=== PATIENT | male | born 1955 | race Caucasian/White ===

== ENCOUNTER → 2018-03-02 | Outpatient (REF) | payer BC ==
[2018-03-02 13:52] LABS: URIC ACID 5.8 MG/DL (3.5-7.2)
== END ==
LOC: M LAB REF 13:04
DX: M79.671 Pain in right foot (principal)
CPT/HCPCS: 84550

== ENCOUNTER → 2020-05-01 | Outpatient (CLI) | payer BC ==
[~2020-05-01] MED LIST: RHOP0.02 OS; SIMB1SUS OS; TIMO0.5S39 OS; XALA0.007 OS
== END ==
LOC: M LABSMTC 09:33
PROVIDERS: ATTEND Anesthesiology
DX: Z01.812 Encounter for preprocedural laboratory examination (principal); Z20.828 Contact with and (suspected) exposure to other viral communicable diseases
CPT/HCPCS: C9803; U0003

== ENCOUNTER → 2020-05-01 | Outpatient (CLI) | payer BC ==
--- NOTE | 2020-05-02 21:17 | ECGEPIP ---
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
== END ==
LOC: M LAB 10:04 → M EKG 10:04
PROVIDERS: ATTEND Surgery
DX: Z01.818 Encounter for other preprocedural examination (principal)

== ENCOUNTER 2020-05-06 06:12 | Day surgery (SDC) | payer BC ==
[~2020-05-06] VITALS: Ht 182.9 cm; Wt 91.6 kg
[2020-05-06] MEDS ORDERED: ceFAZolin SOD 2 GM in IV 1 EA IV ONE (07:00)
[2020-05-06] MEDS ORDERED: LR 1,000 ML IV ONE (07:00)
[2020-05-06] MEDS ORDERED: propofoL 200 MG/20 ML VIAL As Ordered ONE (07:14)
[2020-05-06] MEDS ORDERED: ROCURONIUM BROMIDE 50 MG/5 ML VIAL As Ordered ONE (07:14)
[2020-05-06] MEDS ORDERED: LIDOCAINE 2% 100MG/5ML SDV (FOR ANES.) As Ordered ONE (07:14)
[2020-05-06] MEDS ORDERED: SUGAMMADEX SODIUM 500 MG/5 ML VIAL (BRIDION) As Ordered ONE (07:14)
[2020-05-06] MEDS ORDERED: ONDANSETRON 4MG/2ML VIAL As Ordered ONE (07:15)
[2020-05-06] MEDS ORDERED: dexameTHASONE 4 MG/ML 1ML VIAL (J1100 PER 1MG) As Ordered ONE (07:15)
[2020-05-06] MEDS ORDERED: MIDAZOLAM INJ 2MG/2ML VIAL (J2250 PER 1MG) As Ordered ONE (07:15)
[2020-05-06] MEDS ORDERED: fentaNYL 100 MCG/2 ML INJECTION (J3010) As Ordered ONE (07:15)
[2020-05-06] MEDS ORDERED: KETOROLAC 60MG 2ML VIAL As Ordered ONE (07:15)
[2020-05-06] MEDS ORDERED: ACETAMINOPHEN 1000MG 100ML IV BTL (OFIRMEV) (J0131 PER 10MG) As Ordered ONE (07:15)
[2020-05-06] MEDS ORDERED: BUPIVACAINE HCL 0.25% 10ML VIAL As Ordered ONE (07:17)
[2020-05-06] MEDS ORDERED: BUPIVACAINE HCL 0.25% 30ML VIAL As Ordered ONE (07:18)
[2020-05-06] MEDS ORDERED: LIDOCAINE 1% SDV 30ML VIAL As Ordered ONE (07:18)
[2020-05-06] MEDS ORDERED: BUPIVACAINE LIPOSOME/PF 1.3% 20ML VIAL (13.3MG/ML)(EXPAREL)(C9290 PER1MG) As Ordered ONE (07:18)
[2020-05-06] MEDS ORDERED: oxyCODONE 5MG TAB PO PRN (10:45)
[2020-05-06] MEDS ORDERED: fentaNYL 100 MCG/2 ML INJECTION (J3010) IV PRN (10:45)
[2020-05-06] MEDS ORDERED: METOCLOPRAMIDE INJ 10MG/2ML VIAL (J2765 PER 1) IV PRN (10:45)
[2020-05-06] MEDS ORDERED: MEPERIDINE INJ 25 MG/ML VIAL (J2175) IV PRN (10:45)
[2020-05-06] MEDS ORDERED: LR 1,000 ML IV SCH (10:45)
[2020-05-06] MEDS ORDERED: ONDANSETRON 4MG/2ML VIAL IV PRN (10:45)
[2020-05-06] MEDS ORDERED: KETOROLAC 30 MG/ML 1ML VIAL IV PRN (11:00)
[2020-05-06] MEDS ORDERED: PERCOCET 5MG/325MG TAB PO PRN (11:00)
--- NOTE | 2020-05-06 11:00 | ROOPDOC ---
[facility] Report Of Operation Report of Operation DATE OF PROCEDURE: 05/06/20 PREPROCEDURE DIAGNOSES: right inguinal hernia, umbilical hernia. POSTPROCEDURE DIAGNOSES: right indirect inguinal hernia, umbilical hernia. PROCEDURE: Robotic Assisted Laparoscopic Right inguinal hernia repair (MATTHEW, 16x12 progrip mesh), open umbilical hernia repair (6.4 cm round ventral patch mesh) SURGEON: Jc Garcia MD RUBBER AND POUNDER: HORACIO Ward Ms assisted with placement of ports, management of the instruments and the robotic tower on the field while I was at the surgeon's console, placement of mes and closure of the incisions. She also assisted me with retraction during the open umbilical hernia repair portion. ANESTHESIA: General anesthesia ESTIMATED BLOOD LOSS: Approximately 10 mL. COMPLICATIONS: none REMARKS: right indirect inguinal hernia repair with redundant sac, moderate sized opening of the internal ring. 2 x 1.5 cm umbilical hernia defect. PROCEDURE NOTE: . DESCRIPTION OF PROCEDURE: . Patient received 2 g of Ancef IV preoperatively for wound prophylaxis. Patient was brought to the operating room, placed supine on the operating table. Compression boots placed in both lower extremities for DVT prophylaxis. General anesthesia started. His abdomen and groin/pelvic area then prepped and draped in the usual sterile fashion. After a surgical timeout we began our surgery. Patient has a small roughly about 2 cm umbilical fascial defect pushing the superior portion of the umbilical skin outward. After a field block using a mixture of 1% lidocaine and 1/4% Marcaine around the umbilicus, I created a curvilinear incision at the margin of the umbilical cleft and the umbilical skin was dissected off the hernia. A Veress needle was inserted through the hernia and intra-abdominal insufflation started. Using the umbilical hernia and 8mm port was inserted into the abdomen under direct vision of the laparoscope. The insertion site was inspected for injury and none was found. He was placed in a mild Trendelenburg position at 8 degrees. Along the same transverse line, slightly more superior the left and right 8mm ports were placed under direct vision of laparoscope. A transversus abdominis plane block was then performed under laparoscopic guidance with a 20-gauge 2 inch spinal needle bilaterally. The [employer] robot tower was then positioned in place and the trochars docked onto the robot. The robotic instruments were placed and positioned. I then unscrubbed and took control of the camera and the laparoscopic instruments at the surgeon's console. I used a 0 degree 8 mm robotic laparoscope, A forced bipolar forceps with bipolar cautery on left arm and A laparoscopic scissor with unipolar cautery in arm 1 was used, later on exhanged for a eleazar suture cut needle horse and wagon driver. Operative Findings: On the patient's right side where clinically he was noted to have a hernia a moderate sized opening of the internal ring is appreciated with no intra-abdominal organs protruding through the defect. He also has a fairly fatty umbilical ligament on that side. I did not see any defect at the indirect opening on the left side. The peritoneum was opened up about 7 cms above the superior edge of the indirect fascial defect of the inguinal hernia starting at the medial umbilical ligament going i laterally towards the level of the anterior superior iliac spine. I maintained a preperitoneal dissection, keeping the parietal covering of the inferior epigastric vessels intact. The peritoneal envelope was then developed approaching the space of Retzius bringing the urinary bladder down. The pubic tubercle was exposed past the symphysis pubis and 2 cms inferior to the lower edge fo the pubic tubercle with visualization of the obturator opening, femoral opening, direct hernia space. The lateral space of [place] was similarly opened up keeping the parietal envelope to the psoas muscle to prevent injury to the nerves traversing the muscle. . On approaching the inguinal hernia defect the hernia sac was pulled back into the preperitoneal space and carefully dissected off the testicular vessels and vas deferens, keeping this structures in place. I did have to dissect the vas deference from the hernia sac and parietalize this further to create space and prevent tenting of the peritoneal flap. He has a large redundant inguinal hernia sac which was fully reduced back into the abdomen and released from its fibrotic attachments to the cord structures The perioneum was dissected further inferior to create adequate space for the mesh. The vas deferens was parietalized to free up the petioneum inferiorly and medially.Two large sized, bulky cord lipoma was found and reduced back into the preperitoneal space . After fully dissecting the preperitoneal space, I checked for adequate hemostasis, as well as for presence of femoral hernia( none found), direct hernia and adequacy of the space created. I chose a 16 x 12 cm Parietex Pro Center Mgr self fixating mesh. This was folded with the center of the mesh marked for positioning. This was then delivered intra- abdominally through one of the trochars. In a controlled fashion this was positioned into the preperitoneal space with the medial side past the symphysis pubis, inferiorly below the pubic tubercle and center of the mesh abutting the inferior epigastric vessels,laterally at the Space of [place]. This was carefully pressed onto the abdominal wall and made sure that it was flattened up. After careful placement of the mesh, the peritoneal opening was then closed with a running suture of 2-0V LOC suture. As the hernia sac was long and redundant I incorporated the hernia sac into the closure of the peritoneum. There was hole in the medial aspect of the flap which I closed with a 3-0 vicryl as a pursestring incorporating the redundant sac with it. I then surveyed the abdomen and pelvis for any signs of injury. The instruments were removed. The abdomen was deflated. All ports were removed. I scrubbed back in and proceeded with the umbilical hernia repair. The preperitoneal adipose tissue was dissected free from the hernia defect and likewise I dissected the peritoneum and posterior sheath of the anterior fascial defect create space. Once an adequate space was created the peritoneal sac opening was closed. I chose a 6.4 cm round ventral patch mesh and this was placed into the preperitoneal pocket that I created making sure that this is laying flat. This was closed in 4 corners with 0 Vicryl to the anterior fascia incorporating the strap at the fascial level and then dividing this. The opening was then closed with 0 Ethibond in a mattress fashion. The umbilical cleft was re-created by tacking the bottom of the skin cleft to the fascia and the umbilical incision was then closed with 3-0 Vicryl at the subcutaneous space and [address] interrupt[address] to close the skin. The other 2 port site incisions were closed with 4-0 Monocryl in subcuticular fashion. Dermabond was placed on the lateral sites and Steri-Strips and gauze dressing and Tegaderm placed on top of the umbilical incision. Patient was promptly awakened, extubated and brought to the recovery room stable Count of sponges and instruments were verified correct. JC GARCIA MD May 06, 2020 11:00
[2020-05-06 12:25] VITALS: BP 132/67
== END 2020-05-06 12:35 | disposition home or self-care (01) ==
LOC: M SDC 06:12
PROVIDERS: ATTEND Surgery
DX: K40.90 Unilateral inguinal hernia, without obstruction or gangrene, not specified as recurrent (principal); K42.9 Umbilical hernia without obstruction or gangrene
CPT/HCPCS: 49585; 49650; C1781; C9290; J0131; J0690; J1100; J1885; J2250; J2405; J3010; S2900

== ENCOUNTER → 2021-01-27 | Outpatient (CLI) | payer BC ==
--- NOTE | 2021-01-27 12:09 | REP ---
INDICATION: SWELLING,REDNESS,TENDER COMPARISON: None. TECHNIQUE: Lewis scale and color Doppler evaluation using linear high frequency transducer. FINDINGS: Ultrasound examination of the lower extremity deep venous structures from the common femoral vein through the calf/ankle to include the peroneal, and tibial veins demonstrates normal compressibility flow and wave patterns in response to respiration and augmentation. There is no evidence for deep venous thrombosis. Contralateral CFV is patent and normal. Further limited evaluation along the left medial thigh at the site of erythema demonstrates no obvious underlying fluid collection, mass or abnormality by ultrasound. IMPRESSION: No evidence for deep venous thrombosis. As above. <Electronically signed by Ismael Mcnulty > 01/27/21 1724
== END ==
LOC: M RAD 10:54
PROVIDERS: ATTEND Physician Assistant Medical
DX: R09.89 Other specified symptoms and signs involving the circulatory and respiratory systems (principal)

== ENCOUNTER 2024-05-29 06:02 | Day surgery (SDC) | payer MEDICARE, BC ==
[~2024-05-29] VITALS: Ht 182.9 cm; Wt 89.1 kg
[~2024-05-29 06:02] MED LIST changes: +ATOR1TAB19 PO; +DORZ2SOL5 OS; +VALT500T PO
[2024-05-29] MEDS: CelecoXIB 400 MG CAP PO ONE (06:57)
[2024-05-29] MEDS ORDERED: NS 250 ML IV SCH ×2 (07:00→10:09)
[2024-05-29] MEDS ORDERED: fentaNYL 250 MCG/5 ML INJECTION As Ordered ONE (07:10)
[2024-05-29] MEDS ORDERED: propofoL 200 MG/20 ML VIAL As Ordered ONE (07:11)
[2024-05-29] MEDS ORDERED: ACETAMINOPHEN 1000MG 100ML IV BAG As Ordered ONE (07:11)
[2024-05-29] MEDS ORDERED: ROCURONIUM BROMIDE 50MG/5ML VIAL As Ordered ONE (07:11)
[2024-05-29] MEDS ORDERED: ONDANSETRON 4MG 2ML VIAL As Ordered ONE (07:11)
[2024-05-29] MEDS ORDERED: SUGAMMADEX SODIUM 500 MG/5 ML VIAL (BRIDION) As Ordered ONE (07:11)
[2024-05-29] MEDS ORDERED: MIDAZOLAM INJ 2MG/2ML VIAL As Ordered ONE (07:11)
[2024-05-29] MEDS ORDERED: KETOROLAC 60MG 2ML VIAL As Ordered ONE (07:11)
[2024-05-29] MEDS ORDERED: LIDOCAINE 2% 100MG/5ML SDV (FOR ANES.) As Ordered ONE (07:11)
[2024-05-29] MEDS: ceFAZolin SOD 2 GM in IV 1 EA IV ONE (07:43)
[2024-05-29] MEDS ORDERED: GLYCOPYRROLATE INJ 0.2 MG/ML 2 ML VIAL As Ordered ONE (07:58)
[2024-05-29] MEDS ORDERED: ePHEDrine SULFATE 25 MG/5 ML(5MG/ML) SYRINGE As Ordered ONE (08:11)
[2024-05-29] MEDS: LIDOCAINE 1% SDV 30ML VIAL As Ordered ONE (09:20)
[2024-05-29] MEDS ORDERED: ONDANSETRON 4MG 2ML VIAL IV PRN (09:25)
[2024-05-29] MEDS ORDERED: NS 1,000 ML IV SCH (09:25)
[2024-05-29] MEDS ORDERED: oxyCODONE 5MG TAB PO PRN (09:25)
[2024-05-29] MEDS ORDERED: HYDROMORPHONE HCL 0.5 MG/ 0.5 ML SYRINGE IV PRN (09:25)
[2024-05-29] MEDS ORDERED: fentaNYL 100 MCG/2 ML INJECTION IV PRN (09:25)
[2024-05-29] MEDS ORDERED: NORCO, ANEXSIA 5/325MG TABLET (HYDROcodone/ACETAMINOPHEN) PO PRN ×2 (10:15)
[2024-05-29 10:50] VITALS: BP 137/70; TEMP 97.2; O2SAT 96
[2024-05-29] MEDS ORDERED: KETOROLAC 30 MG/ML 1ML VIAL IV SCH (15:00)
== END 2024-05-29 11:04 | disposition home or self-care (01) ==
LOC: M SDC 06:02
PROVIDERS: ATTEND Surgery
DX: K40.90 Unilateral inguinal hernia, without obstruction or gangrene, not specified as recurrent (principal); E78.5 Hyperlipidemia, unspecified; Z79.899 Other long term (current) drug therapy
CPT/HCPCS: 49650; C1781; J0131; J0665; J0690; J1100; J1596; J1885; J2250; J2405; J3010; S2900